=== PATIENT | female | born 1985 | race Caucasian/White ===

== ENCOUNTER 2021-08-26 18:40 | Emergency (ER) | payer MEDICAID, SELFPAY ==
[2021-08-26 18:41] VITALS: BP 124/75; PULSE 118; RESP 18; TEMP 36.7; O2SAT 99; BMI 30.4
--- NOTE | 2021-08-26 19:15 | EX.ED.DYSGE1 ---
HPI History of Present Illness Chief Complaint: Abd Pain Informant: patient Onset/Context/Timing Onset: Days (3 days) Context: Gradual Onset Timing: Waxes and wanes Current Severity: Mild Maximum Severity: Moderate Narrative Narrative: Patient presents with 3-day history of abdominal pain. She states when she looks her abdomen she can see it moving. This morning she had a burning sensation in her left lower quadrant that is now resolved. She has the pain seems to be worse when she bends over. She denies change in oral intake. No vomiting or diarrhea. No fever or chills. No urinary symptoms. PFSH PFSH Medical History no medical history Home Medications magnesium citrate 300 ml PO DAILY PRN constipation #296 mL 08/26/21 [Rx Last Taken Unknown] Allergy/AdvReac Type Severity Reaction Status Date / Time guaifenesin [From Robitussin] Allergy Anaphylaxis Verified 08/26/21 18:43 Penicillins Allergy Anaphylaxis Verified 08/26/21 18:43 Surgical History H/O tubal ligation S/P nerve repair Surgical History no surgical history Social History Smoking Status: Current every day smoker tobacco type: cigarettes ROS ROS ED Constitutional Constitutional ED: Denies chills or fever(s) Eyes Eyes: Denies change in vision or discharge from eye(s) ENT ENT ED: Denies discharge from eye(s), rhinorrhea or sore throat Cardiovascular Cardiovascular: Denies chest pain or palpitations Respiratory/Chest Respiratory/Chest: Denies cough or dyspnea Gastrointestinal Gastrointestinal: Reports abdominal pain; Denies diarrhea, nausea or vomiting Genitourinary Genitourinary ED: Denies difficulty urinating or dysuria Musculoskeletal Musculoskeletal: Denies back pain or extremity pain Integumentary Denies Abrasions or rash Neurologic Neurologic: Denies headache(s) or weakness Allergic/Immunologic Allergic/Immunologic ED: Denies lip swelling or urticaria EXAM Physical Exam Const Vital Signs: 08/26/21 18:41 Temperature 98.0 F Temperature Source Temporal Pulse Rate 118 H Respiratory Rate 18 Blood Pressure 124/75 H Blood Pressure Mean 91 Pulse Ox 99 Oxygen Delivery Method Room Air Positive well nourished and well developed General Appearance ED: well developed HEENT Reports normocephalic and head/scalp atraumatic Eyes PERRL and EOMs intact bilaterally Neck supple Chest Wall inspection of chest normal and palpation of chest normal Resp normal respiratory effort and clear to auscultation bilaterally Cardio regular rate and regular rhythm GI non-tender Auscultation: hypoactive bowel sounds Palpation: soft Extremity normal to inspection Neuro oriented x3 and no sensory deficits noted Sensorium / Orientation: alert Motor Exam: strength 5/5 throughout Psych mental status grossly normal Skin no rashes or lesions noted MDM MDM MDM Narrative Medical decision making narrative: Patient declined anything for pain here. Lab work and urinalysis obtained. CT flank ordered. Lab Data Attestation: I reviewed the patient's lab results. Labs: Laboratory Results - last 24 hr 08/26/21 08/26/21 08/26/21 19:27 19:27 19:27 WBC 14.6 H RBC 4.82 Hgb 13.6 Hct 42.3 MCV 87.8 MCH 28.2 MCHC 32.2 RDW Std Deviation 50.0 H RDW Coeff of Azul 15.6 H Plt Count 237 MPV 11.8 Immature Gran % (Auto) 0.500 Neut % (Auto) 59.8 Lymph % (Auto) 22.6 [place] % (Auto) 11.8 H Eos % (Auto) 4.5 Baso % (Auto) 0.8 Absolute Neuts (auto) 8.7 H Absolute Lymphs (auto) 3.30 Nucleated RBC % 0 Differential Comment SEE COMMENT Diff Path Review May foll Platelet Estimate ADEQUATE RBC Morphology NORM C+C Anisocytosis RARE Sodium 140 Potassium 3.6 Chloride 107 Carbon Dioxide 27.0 Anion Gap 6 BUN 12 Creatinine 0.90 Estim Creat Clear Calc 75.34 Est GFR (MDRD) Af Amer 92 Est GFR (MDRD) Non-Af 76 BUN/Creatinine Ratio 13.4 Glucose 93 Calcium 8.7 Total Bilirubin 0.20 Direct Bilirubin 0.12 AST 24 ALT 63 H Alkaline Phosphatase 79 Total Protein 7.9 Albumin 3.8 Globulin 4.1 Serum , Qual NEGATIVE Urine Color Urine Clarity Urine pH Ur Specific [place] Urine Protein Urine Glucose (UA) Urine Ketones Urine Occult Blood Urine Nitrite Urine Bilirubin Urine Urobilinogen Ur Leukocyte Esterase Urine RBC Urine WBC Ur Squamous Epith Cells Urine Bacteria Urine Mucus 08/26/21 20:20 WBC RBC Hgb Hct MCV MCH MCHC RDW Std Deviation RDW Coeff of Azul Plt Count MPV Immature Gran % (Auto) Neut % (Auto) Lymph % (Auto) [place] % (Auto) Eos % (Auto) Baso % (Auto) Absolute Neuts (auto) Absolute Lymphs (auto) Nucleated RBC % Differential Comment Diff Path Review Platelet Estimate RBC Morphology Anisocytosis Sodium Potassium Chloride Carbon Dioxide Anion Gap BUN Creatinine Estim Creat Clear Calc Est GFR (MDRD) Af Amer Est GFR (MDRD) Non-Af BUN/Creatinine Ratio Glucose Calcium Total Bilirubin Direct Bilirubin AST ALT Alkaline Phosphatase Total Protein Albumin Globulin Serum , Qual Urine Color Yellow Urine Clarity Clear Urine pH 6.0 Ur Specific [place] 1.025 Urine Protein 15 H Urine Glucose (UA) Normal Urine Ketones 5 H Urine Occult Blood Negative Urine Nitrite Negative Urine Bilirubin Negative Urine Urobilinogen 4 H Ur Leukocyte Esterase 25 H Urine RBC 0 SEEN Urine WBC 0-5 SEEN Ur Squamous Epith Cells 0-5 SEEN Urine Bacteria 0 SEEN Urine Mucus 0 SEEN Radiography Diagnostic Testing: Clinical Impression(s) from Imaging Studies Abdomen/Pelvis CT 08/26/21 20:32 IMPRESSION: 1. Moderate constipation. 2. Fluid filled stomach. 3. Previous cholecystectomy. Normal intrahepatic biliary system and common bile duct. 4. Normal pancreas. 5. No appendicitis, diverticulitis, colitis, or intestinal obstruction. 6. Large uterine fundus to 6.3 cm, that could represent a large fundal fibroid. No ovarian abnormalities. 7. Tampon in the vagina. 8. Normal kidneys and bladder. 9. No other abnormal findings. Electronically Signed: Saul Arriaza MD at 21:01 EDT , Treatment and Re-Evaluation Narrative: White count is elevated at 14.6. Differential is unremarkable. Chemistry studies and LFTs normal. test negative. Urinalysis reveals no acute infection. CT scan reveals moderate constipation. There is evidence of a uterine fibroid. Tampon is noted in the vagina. Although patient states that she is not supposed to start her period next week, she does state that she placed this and it is not left from previous and causing any infection. Patient be given prescription for magnesium citrate. She will be referred to local PCP to establish care. Discharge Plan Triage Chief Complaint: Abd Pain ED Provider: Zoe Palm Dx/Rx/DC Orders Clinical Impression: Constipation, Abdominal pain, Fibroid, uterine Instructions: ED Constipation (Adult), ED Uterine Fibroids Prescriptions: New magnesium citrate Solution 300 ml PO DAILY PRN (Reason: constipation) Qty: 296 0RF Rx Instructions: Drink half a bottle of magnesium citrate. If no significant bowel movement in the next 4 hours please drink remainder of the bottle. Primary Care Provider: Care Physician,No Primary Referrals: Fast,Lillie, DO [NON-STAFF] - As Needed Care Physician,No Primary [Primary Care Provider] - Disposition Disposition: Home, Self Care
[2021-08-26 19:40] LABS: Absolute Neutrophil Count 8.7 X10^3/uL (2.0-7.7); Basophil# 0.11 X10^3/uL; Basophil% 0.8 % (0-1); Eosinophil# 0.66 X10^3/uL; Eosinophils% 4.5 % (0-5); Hematocrit 42.3 % (37-47); Hemoglobin 13.6 g/dL (12.0-15.0); Lymphocyte % 22.6 % (19-41); Mean Corp Hgb Conc 32.2 g/dL (32-36); Mean Corpuscular Hgb 28.2 pg (27.0-32.0); Mean Corpuscular Volume 87.8 fL (81-99); Mean Platelet Vol. 11.8 fl (6.2-12.0); Monocyte# 1.73 X10^3/uL; Monocyte% 11.8 % (0-10); NRBC Flagged by Analyzer 0 % (0-5); Neutrophil # 8.72 X10^3/uL (2.7-7.7); Neutrophil % 59.8 % (47-70); POSITIVE DIFFERENTIAL YES; Platelet Count 237 K/mm3 (150-450); RBC Distribution Width CV 15.6 % (11.6-14.6); Red Blood Count 4.82 M/mm3 (4.2-5.4); White Blood Count 14.6 K/mm3 (4.4-11.0)
[2021-08-26 19:50] LABS: Internal QC Validated? YES +Cl - CLEAR BKGD; Pregnancy, Serum, hCG Quali. NEGATIVE Negative
[2021-08-26 19:56] LABS: AST(SGOT) 24 U/L (15-37); Alanine Aminotransfer ALT/SGPT 63 U/L (13-56); Albumin, Serum 3.8 g/dL (3.2-5.0); Alkaline Phosphatase 79 U/L (45-117); Anion Gap 6 (5-15); BUN 12 mg/dL (7-18); BUN/Creat Ratio 13.4 RATIO (10-20); Bilirubin, Direct 0.12 mg/dL (0.00-0.30); Calcium,Total 8.7 mg/dL (8.5-10.1); Chloride 107 mmol/L (98-107); EST Glomerular Filtration Rate 76 mL/min (>60); Est Glom Filt Rate - Afr Amer 92 mL/min (>60); Estimated Creatinine Clearance 75.34 ml/min; Globulin 4.1 g/dL (2.2-4.2); Glucose 93 mg/dL (74-106); Potassium 3.6 mmol/L (3.5-5.1); Protein, Total 7.9 g/dL (6.4-8.2); Sodium Level 140 mmol/L (136-145)
[2021-08-26 20:18] LABS: Differential Indicated SCAN CRITERIA MET
[2021-08-26 20:19] LABS: Anisocytosis RARE; Platelet Estimate ADEQUATE (ADEQ); Red Cell Morphology NORM C+C NORMAL (NORM C&C)
--- NOTE | 2021-08-26 20:32 | CT_ITS ---
STUDY: CT ABDOMEN AND PELVIS WITHOUT CONTRAST ENHANCEMENT OF 2036 HOURS ON 08/26/2021 REASON FOR EXAM: 36-year-old female with abdominal pain. RADIATION DOSAGE (If Supplied By Facility): CTDIvol = ( 9.61 ) mGy, DLP = ( 431.97 ) mGycm TECHNIQUE: Transaxial images were obtained from the dome of the diaphragm to the symphysis pubis without oral contrast, and without intravenous contrast. Sagittal and coronal images were reconstructed. COMPARISON: None. FINDINGS: The visualized lung bases are unremarkable. The visualized portions of the heart are within normal limits. Normal liver. Previous cholecystectomy. Normal intrahepatic biliary system and common bile duct. Normal spleen. Normal pancreas. Normal bilateral adrenal glands. Normal right kidney. Normal left kidney. Food filled stomach. Normal small intestine. Moderate constipation. No diverticulitis, colitis, or intestinal obstruction. The appendix is visualized and appears normal. Normal abdominal aorta. Normal inferior vena cava. Normal retroperitoneum. Normal urinary bladder. Anteverted uterus. There is a large uterine fundus to 6.3 cm that could represent a large fundal fibroid. No ovarian cystic or solid masses. There is a tampon in the vagina. Normal abdominal wall. Normal osseous structures. CT/Abdomen/Pelvis without Cont IMPRESSION: 1. Moderate constipation. 2. Fluid filled stomach. 3. Previous cholecystectomy. Normal intrahepatic biliary system and common bile duct. 4. Normal pancreas. 5. No appendicitis, diverticulitis, colitis, or intestinal obstruction. 6. Large uterine fundus to 6.3 cm, that could represent a large fundal fibroid. No ovarian abnormalities. 7. Tampon in the vagina. 8. Normal kidneys and bladder. 9. No other abnormal findings. Electronically Signed: Saul Arriaza MD at 21:01 EDT ,
[2021-08-26 20:37] LABS: Bacteria 0 SEEN /hpf (None Seen); Mucous, Urine 0 SEEN /hpf (<or=2+); Red Blood Cells-Urine 0 SEEN /hpf (0-5)
[2021-08-26 20:44] LABS: Color, Urine Yellow (Yellow); Glucose, Dipstick Normal (Normal); Ketone-Dipstick 5 mg/dl (Negative); Leukocyte Esterase-Dipstick 25 /ul (Negative); Nitrite-Dipstick Negative (Negative); Occult Blood-Urine Negative /ul (Negative); Protein-Dipstick 15 mg/dl (Negative); Specific Gravity, Urine 1.025 (1.002-1.030); Urine Bilirubin Dipstick Negative (Negative); Urine Clarity Clear (Clear); Urine Urobilinogen 4 mg/dl (Normal)
[2021-08-26 21:25] LABS: Squamous Epithelial Cells - UA 0-5 SEEN /hpf (5-10); White Blood Cells 0-5 SEEN /hpf (0-5)
[2021-08-26 21:40] VITALS: PULSE 110; RESP 16; O2SAT 97
[2021-08-27 13:19] LABS: Pathologist Review Reviewed
== END 2021-08-26 21:43 | disposition home or self-care (01) ==
PROVIDERS: Emergency Provider Emergency Medicine; Visit Provider Emergency Medicine
DX: K59.00 Constipation, unspecified (principal); D25.9 Leiomyoma of uterus, unspecified; F17.210 Nicotine dependence, cigarettes, uncomplicated
CPT/HCPCS: 74176; 80048; 80076; 81001; 84703; 85025; 99283; A4216

== ENCOUNTER 2022-01-29 11:07 | Emergency (ER) | payer MEDICAID, SELFPAY ==
[2022-01-29 11:08] VITALS: BP 141/82; PULSE 91; RESP 18; TEMP 36.3; O2SAT 98; BMI 29.2
--- NOTE | 2022-01-29 12:35 | EDS_ITS ---
HPI <JUANA Nayak - Last Filed: 01/29/22 22:37> History of Present Illness Chief Complaint: General Illness Narrative Narrative: Patient presents today with cold-like symptoms that started on . She states she has had a sore throat, productive cough, sneezing, chills, and a headache. Patient denies dyspnea, fever, nausea, vomiting, abdominal pain, and diarrhea. She states she has had some shortness of breath with exertion. Patient has been able to tolerate food and liquids. Patient denies any sick contacts. PFSH <JUANA Nayak - Last Filed: 01/29/22 22:37> [facility] Home Medications magnesium citrate 300 ml PO DAILY PRN constipation #296 mL 08/26/21 [Rx Last Taken Unknown] Allergy/AdvReac Type Severity Reaction Status Date / Time guaifenesin [From Robitussin] Allergy Anaphylaxis Verified 01/29/22 11:08 Penicillins Allergy Anaphylaxis Verified 01/29/22 11:08 Surgical History H/O tubal ligation S/P nerve repair Social History Smoking Status: Current every day smoker tobacco type: cigarettes ROS <JUANA Nayak - Last Filed: 01/29/22 22:37> ROS ED Constitutional Constitutional ED: Reports chills; Denies fever(s) or sweats Eyes Eyes: Denies change in vision or discharge from eye(s) ENT ENT ED: Reports rhinorrhea and sore throat; Denies discharge from eye(s) or ear pain Cardiovascular Cardiovascular: Denies chest pain or palpitations Respiratory/Chest Respiratory/Chest: Reports cough and shortness of breath with exertion; Denies dyspnea, dyspnea on exertion or shortness of breath at rest Gastrointestinal Gastrointestinal: Denies abdominal pain, constipation, diarrhea, nausea or vomiting Genitourinary Genitourinary ED: Denies dysuria, hematuria or urinary frequency Musculoskeletal Musculoskeletal: Denies back pain, myalgias or neck pain Integumentary Denies abscess, Abrasions or rash Neurologic Neurologic: Reports headache(s); Denies paresthesias or weakness Psychiatric Psychiatric: Denies anxiety EXAM <JUANA Nayak - Last Filed: 01/29/22 22:37> Physical Exam Const Vital Signs: 01/29/22 11:08 01/29/22 12:40 01/29/22 13:33 Temperature 97.4 F L Temperature Source Temporal Pulse Rate 91 Respiratory Rate 18 16 Respiratory Effort Normal Respiratory Pattern Normal Blood Pressure 141/82 H Blood Pressure Mean 101 Pulse Ox 98 Oxygen Delivery Method Room Air Positive well nourished and well developed General Appearance ED: well developed HEENT Reports TM's clear and moist mucous membranes Negative for trauma or tenderness Nose: nares normal External Ear: external ears normal Tympanic Membrane ED: Yes TM's clear Mouth ED: Yes oral and palatal mucosa normal Mouth: oral and palatal mucosa normal Throat: posterior oropharynx normal and tonsils absent Eyes PERRL and EOMs intact bilaterally Neck no lymphadenopathy and supple Resp normal respiratory effort and clear to auscultation bilaterally Auscultation: Negative for rales, rhonchi, wheezes or diminished lung sounds Cardio regular rate, regular rhythm and no murmurs GI non-tender, non-distended and no masses; Negative for hepatosplenomegaly Palpation: soft Extremity normal to inspection General Extremety ED: Negative for edema or tenderness General Extremity: Negative for edema Neuro oriented x3, CN's II-XII intact bilaterally and no sensory deficits noted Sensorium / Orientation: alert Motor Exam: strength 5/5 throughout Psych mental status grossly normal Skin no rashes or lesions noted, no wounds and skin turgor normal <Dr. Reji Rodriguez, DO - Last Filed: 01/29/22 16:55> Physical Exam Const Vital Signs: 01/29/22 11:08 01/29/22 12:40 01/29/22 13:33 Temperature 97.4 F L Temperature Source Temporal Pulse Rate 91 Respiratory Rate 18 16 Respiratory Effort Normal Respiratory Pattern Normal Blood Pressure 141/82 H Blood Pressure Mean 101 Pulse Ox 98 Oxygen Delivery Method Room Air MDM <JUANA Nayak - Last Filed: 01/29/22 22:37> MDM MDM Narrative Medical decision making narrative: Flu, COVID, strep pharyngitis all negative. Patient is well-appearing and in no acute distress. Her vital signs have remained stable and O2 sat is 98% on RA. I am comfortable with patient discharging home with return instructions. Patient is comfortable with plan. I have educated patient on supportive care treatments. <Dr. Reji Rodriguez, DO - Last Filed: 01/29/22 16:55> [facility] Treatment and Re-Evaluation Narrative: I have personally performed a face to face assessment of the patient and have reviewed the DAMIAN Note. I performed a substantive portion of the visit including all aspects of the following. My rodriguez findings include: History: Patient presents with sore throat, cough, and flulike symptoms that have been getting worse over the past couple days. Patient states her throat pain is worse with swallowing. Patient states she is having a dry cough. Patient denies any nausea or vomiting. Patient denies any rhinorrhea. Exam: Vital signs are stable. Patient is afebrile. Patient is in no acute distress. Oral mucosa is pink and moist. Oropharynx is mildly erythematous. There are no exudates noted. Neck is supple. Trachea is midline. There is some mild anterior cervical lymphadenopathy. Heart was regular rate and rhythm. Lungs are clear and equal bilaterally. Cranial nerves II through XII are intact. There are no focal motor or sensory deficits. Medical Decision Making: Influenza A and influenza B rapid antigens were obta ined and were negative. COVID-19 rapid antigen was obtained and was negative. Rapid strep was obtained and was negative. Patient was advised that this is most likely a viral pharyngitis. Patient was instructed to drink plenty of fluids. Patient was instructed to take Tylenol or ibuprofen as needed for pain or fevers. Patient was instructed to follow-up with her primary care physician in 5 to 7 days. Patient understood and was agreeable with the plan. All questions were answered. Discharge Plan Triage Chief Complaint: General Illness ED Midlevel Provider: Mary Pena ED Provider: Reji Rodriguez Dx/Rx/DC Orders Clinical Impression: Viral URI Instructions: ED URI, Viral, No Abx (Adult) Prescriptions: No Action magnesium citrate Solution 300 ml PO DAILY PRN (Reason: constipation) Qty: 296 0RF Rx Instructions: Drink half a bottle of magnesium citrate. If no significant bowel movement in the next 4 hours please drink remainder of the bottle. Primary Care Provider: Care Physician,No Primary Referrals: Alexandra George DO [Med Staff - Manager [employer]] - 1 Week if not improving Care Physician,No Primary [Primary Care Provider] - Activity Restrictions/Additional Instructions: Stay well-hydrated get plenty of rest. You can use [id number] cold and flu medicine for symptom and fever control if needed. Disposition Disposition: Home, Self Care Discharge Date/Time: 01/29/22 13:34
[2022-01-29 13:33] VITALS: RESP 16
== END 2022-01-29 13:34 | disposition home or self-care (01) ==
PROVIDERS: Emergency Provider Emergency Medicine; Visit Provider Emergency Medicine
DX: J06.9 Acute upper respiratory infection, unspecified (principal); F17.210 Nicotine dependence, cigarettes, uncomplicated
CPT/HCPCS: 87428; 87880; 99282